=== PATIENT | female | born 1990 | race Hispanic/Latino ===

== ENCOUNTER 2018-02-08 19:41 | Emergency (ER) | payer BC, OTHER ==
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
== END 2018-02-08 22:47 | disposition home or self-care (01) ==
LOC: ER 19:41
DX: M54.2 Cervicalgia (principal); V49.49XA Driver injured in collision with other motor vehicles in traffic accident, initial encounter
CPT/HCPCS: 70450; 72125; 99284

== ENCOUNTER 2018-09-27 19:14 | Observation (INO) | payer OTHER, SELFPAY ==
[2018-09-27] MEDS ORDERED: CEFOXITIN SODIUM 1 GM/VIAL IVPB ONE (20:01)
[2018-09-27 20:04] VITALS: BMI 23.0
[2018-09-27] MEDS: NA CHLORIDE 0.9% 1,000 ML IV SCH (20:16)
[2018-09-27] MEDS ORDERED: CEFOXITIN/SWI 1gm 1 GM/10 ML SYR ONE (20:46)
[2018-09-27] MEDS ORDERED: Ringers Lactate 1,000 ML IV ONE (20:48)
[2018-09-27] MEDS ORDERED: FENTANYL CITR 100 MCG/2 ML ONE (20:50)
[2018-09-27] MEDS ORDERED: ROCURONIUM 50 MG/5 ML VIAL IV ONE (21:09)
[2018-09-27] MEDS ORDERED: PROPOFOL 200 MG/20 ML VIAL IV ONE (21:09)
[2018-09-27] MEDS ORDERED: MIDAZOLAM HCL 2 MG/2 ML INJ ONE (21:11)
[2018-09-27] MEDS ORDERED: LIDOCAINE 2% MPF 5 ML VIAL ONE (21:11)
[2018-09-27] MEDS ORDERED: KETOROLAC 30 MG/ML INJ ONE (21:57)
[2018-09-27] MEDS ORDERED: DEXAMETHASONE 10 MG/ML VIAL ONE (21:57)
[2018-09-27] MEDS ORDERED: NEOSTIGMINE 1 MG/ML -5 ML SYRINGE ONE (22:07)
[2018-09-27] MEDS ORDERED: GLYCOPYRROLATE 0.2 MG/ML SYR ONE (22:07)
--- NOTE | 2018-09-27 22:16 | P.BOP ---
Preoperative diagnosis: acute appendicitis Postoperative diagnosis: same Primary procedure: Laparoscopic appendectomy Estimated blood loss: <10cc Specimen: jo Findings: as above Anesthesia: General Complications: None Transferred to: Recovery Room Condition: Good
[2018-09-27] MEDS: HYDROMORPHONE HCL 1 MG/ML INJ ONE ×2 (22:50→22:56)
[2018-09-27 22:55] VITALS: O2SAT 97
[2018-09-28] MEDS: HYDROCODONE/APAP 7.5/325 MG TAB PO PRN ×3 (00:06→12:01)
[2018-09-28] MEDS: MORPHINE 2 MG/ML SYR IV PRN ×2 (02:07→09:16)
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
[2018-09-28] MEDS ORDERED: INFLUENZA VACCINE (for 3y+) 0.5 ML DOSE IMVAC ONE (08:00)
--- NOTE | 2018-09-28 08:41 | OP ---
Date of Procedure: 09/27/2018 Surgeon: Chad Bae MD Preoperative Diagnosis: Acute appendicitis. Postoperative Diagnosis: Acute appendicitis. Procedure: Laparoscopic appendectomy. Anesthesia: General plus local. Specimen: Appendix. Indications: This is the case of a 28-year-old patient with acute appendicitis. Fully explained the benefits, alternatives, and risks of laparoscopic, possible open appendectomy, which include but are not limited to infection, bleeding, damage to adjacent structures, anesthesia complication, CT, and even . She also understands this may not relieve any symptoms, she might need more than one ld gical intervention. She understood, signed a consent. Description Of Procedure: The patient was brought to the operating room, placed in supine position. Anesthesia was done without complication. Abdominal area was prepped and draped in usual sterile fa shion. Marcaine 0.5% was injected for local anesthetic, followed by sharp incision of the skin in th e infraumbilical region. Incision was carried down to fascia, which was opened under direct vision. Peritoneum was encountered, opened under direct vision. Vicryl #1 placed inside the fascia. Remigio trocar was carefully introduced. No bleeding was obtained. After that, I placed 2 more trocars, 5 mm each one of them, in the suprapubic and left lower quadrant area under direct visualization. Appe ndix was visualized, noticed inflammation of the appendix, retrocecal so carefully we created window in the base of the appendix which seems to be spared from the inflammation and transected that with a n Endo JERONIMO 45 mm 3.5, and the mesoappendix sequentially with the Endo-JERONIMO 45 mm 2.5. Further hemosta sis was obtained with the help of hemoclips. Appendix removed from abdominal cavity using an EndoCat ch through the umbilical incision. The area was inspected once again after irrigation and suction, n o bleeding, no bowel leak. At that moment, I proceeded to remove the trocars under direct vision, de flated pneumoperitoneum, closed the fascia with #1 Vicryl, irrigated subcutaneous tissue, closed that with 3-0 chromic and the skin with maurice. Sponge count and instrument counts were correct. The p atient tolerated the procedure well. The patient was sent to recovery in stable condition. MARILU/DELLA Voice ID: [id number] Report ID: [id number]
[2018-09-28] MEDS: NA CHLORIDE 0.9% 1,000 ML IV SCH (09:16)
[2018-09-28 13:41] VITALS: BP 109/72; TEMP 97.7
== END 2018-09-28 15:00 | disposition home or self-care (01) ==
LOC: 2ND 19:14
PROVIDERS: ADMIT Surgery; ATTEND Surgery
PROC: 0DTJ4ZZ Resection of Appendix, Percutaneous Endoscopic Approach (ICD-10-PCS; principal; 2018-09-27 21:00)
DX: K35.80 Unspecified acute appendicitis (principal); E03.9 Hypothyroidism, unspecified; J45.909 Unspecified asthma, uncomplicated
CPT/HCPCS: 88304; G0378; J0694; J1100; J1170; J2250; J2270; J2704; J2710; J3010; J7030

== ENCOUNTER 2018-10-05 17:32 | Emergency (ER) | payer OTHER ==
--- NOTE | 2018-10-05 18:31 | ER ---
Nurse's Notes [facility] Name: Corinne Haley Age: 28 yrs Sex: Female : 1990 Arrival Date: 10/05/2018 Time: 17:35 Bed 16 Private MD: Fernando Sultana E Diagnosis: Encounter for staple removal Presentation: 10/05 18:07 Presenting complaint: Patient states: Pt states that she missed her follow up ss appointment today with Dr. Bae to have her maurice removed s/p appy as she had to write a paper for school. Pt is crying and very anxious during triage because she is nervous about her schooling. Transition of care: patient was not received from another setting of care. Onset of symptoms is unknown. Risk Assessment: Do you want to hurt yourself or someone else? Patient reports no desire to harm self or others. Initial Sepsis Screen: Does the patient meet any 2 criteria? No. Patient's initial sepsis screen is negative. Does the patient have a suspected source of infection? No. Patient's initial sepsis screen is negative. Care prior to arrival: None. 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 - Social history:: Smoking status: Patient/guardian denies using tobacco. - Ebola Screening: : Patient denies exposure to infectious person Patient denies travel to an Ebola-affected area in the 21 days before illness onset. - Family history:: not pertinent. - Hospitalizations: : No recent hospitalization is reported. Screenin:20 Abuse screen: Denies threats or abuse. Denies injuries from another. Nutritional mg2 screening: No deficits noted. Tuberculosis screening: No symptoms or risk factors identified. Fall Risk None identified. Assessment: 18:17 General: Appears in no apparent distress. comfortable, Behavior is anxious, crying. mg2 Pain: Denies pain. Neuro: Level of Consciousness is awake, alert, obeys commands, Oriented to person, place, time, situation. Cardiovascular: Reports. Respiratory: Airway is patent Respiratory effort is even, unlabored, Respiratory pattern is regular, symmetrical. Respiratory: No deficits noted. GI: No deficits noted. : No deficits noted. EENT: No deficits noted. Derm: Skin is intact, is healthy with good turgor, Wound noted abdomen with maurice on. Musculoskeletal: No signs and/or symptoms reported regarding the musculoskeletal system. Vital Signs: 18:11 BP 123 / 95; Pulse 104; Resp 20; Temp 97.9(O); Pulse Ox 99% on R/A; Weight 65.77 kg; ss Height 5 ft. 6 in. (167.64 cm); Pain 0/10; 18:11 Body Mass Index 23.40 (65.77 kg, 167.64 cm) ED Course: 17:35 Patient arrived in ED. dl4 17:36 Fernando Sultana MD is Private Physician. dl4 18:09 Triage completed. ss 18:11 Arm band placed on right wrist. ss 18:12 Leonardo Neri, RN is Primary Nurse. mg2 18:12 Triston Osborn MD is Attending Physician. rn 18:35 Assist provider with pelvic exam: staple removal from the abdomen s/p lap ap, steri mg2 strips applied. 18:36 Patient has correct armband on for positive identification. mg2 18:37 Patient did not have IV access during this emergency room visit. mg2 Administered Medications: No medications were administered Outcome: 18:31 Discharge ordered by . rn 18:36 Discharged to home ambulatory. mg2 18:36 Condition: stable 18:36 Discharge instructions given to patient, Instructed on discharge instructions, follow up and referral plans. Demonstrated understanding of instructions, follow-up care, wound care. 18:40 Patient left the ED. mg2 Signatures: Triston Osborn MD MD rn Smirch, Shelby, RN RN Leonardo Neri RN RN mg2 Hans Aguilera dl4
--- NOTE | 2018-10-05 18:31 | EDPHYS ---
Physician Documentation [facility] Name: Corinne Haley Age: 28 yrs Sex: Female : 1990 Arrival Date: 10/05/2018 Time: 17:35 Bed 16 Private MD: Fernando Sultana E ED Physician Triston Osborn HPI: 10/05 18:25 This 28 yrs old Female presents to ER via Ambulatory with complaints of rn Anxiety, Staple Removal. 18:25 The patient has maurice on the abdomen. rn 18:25 Sutures/maurice progress: The patient has no c/o's. The wound is well-healing with no rn redness, swelling, discharge, or dehiscence reported. The patient has not experienced similar symptoms in the past. Reports 1 week s/p lap appy, had appt for staple removal today with Dr. Bae, missed appt because of school. No other complications.. 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 - Social history:: Smoking status: Patient/guardian denies using tobacco. - Ebola Screening: : Patient denies exposure to infectious person Patient denies travel to an Ebola-affected area in the 21 days before illness onset. - Family history:: not pertinent. - Hospitalizations: : No recent hospitalization is reported. ROS: 18:25 Skin: + surgical wounds with maurice rn Exam: 18:25 Constitutional: This is a well developed, well nourished patient who is awake, alert, rn appears anxious Skin: Well healed surgical wounds of abdomen Vital Signs: 18:11 BP 123 / 95; Pulse 104; Resp 20; Temp 97.9(O); Pulse Ox 99% on R/A; Weight 65.77 kg; ss Height 5 ft. 6 in. (167.64 cm); Pain 0/10; 18:11 Body Mass Index 23.40 (65.77 kg, 167.64 cm) ss Procedures: 18:25 Suture/Staple removal: Removed 7 maurice, from abdomen, site appears well healed, rn Patient tolerated well. MDM: 18:12 Patient medically screened. rn 18:25 Data reviewed: vital signs, nurses notes, and as a result, I will discharge patient. rn Counseling: I had a detailed discussion with the patient and/or guardian regarding: the historical points, exam findings, and any diagnostic results supporting the discharge/admit diagnosis, the need for outpatient follow up, to return to the emergency department if symptoms worsen or persist or if there are any questions or concerns that arise at home. Special discussion: I discussed with the patient/guardian in detail that at this point there is no indication for admission to the hospital. It is understood, however, that if the symptoms persist or worsen the patient needs to return immediately for re-evaluation. Administered Medications: No medications were administered Disposition: 10/05/18 18:31 Discharged to Home. Impression: Encounter for staple removal. - Condition is Stable. - Discharge Instructions: Stitches, [place], or Adhesive Wound Closure. - Medication Reconciliation Form, Thank You Letter, Antibiotic Education, Prescription Opioid Use form. - Follow up: Private Physician; When: As needed; Reason: Recheck today's complaints, Re-evaluation by your physician. - Problem is new. - Symptoms have improved. Signatures: Triston Osborn MD MD rn Smirch, Shelby, RN RN Leonardo Neri RN RN mg2 Corrections: (The following items were deleted from the chart) 18:40 18:31 10/05/2018 18:31 Discharged to Home. Impression: Encounter for staple removal. mg2 Condition is Stable. Forms are Medication Reconciliation Form, Thank You Letter, Antibiotic Education, Prescription Opioid Use. Follow up: Private Physician; When: As needed; Reason: Recheck today's complaints, Re-evaluation by your physician. Problem is new. Symptoms have improved. rn
[2018-10-05 18:48] VITALS: BP 123/95; TEMP 97.9; O2SAT 99
== END 2018-10-05 18:40 | disposition home or self-care (01) ==
LOC: ER 17:32
DX: Z48.02 Encounter for removal of sutures (principal); E03.9 Hypothyroidism, unspecified; F41.9 Anxiety disorder, unspecified; J45.909 Unspecified asthma, uncomplicated
CPT/HCPCS: 99283

== ENCOUNTER → 2023-10-19 | Emergency (ER) | payer OTHER, SELFPAY ==
[~2023-10-19] MED LIST: NA CHLORIDE 0.9% 1,000 ML ONE; ONDANSETRON 4 MG/2 ML VIAL ONE; cloNIDine HCL 0.1 MG TAB ONE
[2023-10-20 01:02] LABS: Absolute Lymphocytes (CBC) 0.9 K/uL (0.7-4.9); Hematocrit 41.9 % (36.0-45.0); Lymphocytes % 9.6 % (15.3-44.8); MCV 87.8 fL (80-100); MPV 7.8 fL (7.6-11.3); Platelets 268 thou/uL (152-406); RBC Red Blood Cell Count 4.77 M/uL (3.86-4.86)
[2023-10-20 01:05] LABS: Specific Gravity 1.022 (1.005-1.030)
[2023-10-20 01:06] LABS: Specific Gravity 1.022 (1.005-1.030); Urine Bacteria 20-50 /HPF (<20); Urine Bilirubin NEGATIVE (Negative); Urine Blood 1+ (Negative); Urine Clarity Extremely Turbid (Clear); Urine Color Yellow (Yellow); Urine Glucose NEGATIVE (Negative); Urine Mucus 2+ /HPF (None Seen); Urine Protein 1+ (Negative); Urine RBC <5 /HPF (None Seen); Urine Urobilinogen Normal (Normal); Urine pH 5.5 (5.0-7.0)
[2023-10-20 01:30] LABS: ALT/SGPT 21 U/L (13-56); AST/SGOT 15 U/L (15-37); Albumin 3.6 g/dL (3.4-5.0); Alkaline Phosphatase 56 U/L (45-117); BUN Blood Urea Nitrogen 11 mg/dL (7-18); Bicarbonate 27 mEq/L (21-32); Bilirubin Total 0.3 mg/dL (0.2-1.0); Glomerular Filtration Rate 90 ml/min (=/>90); Glucose Level 101 mg/dL (74-106); Potassium 3.1 mEq/L (3.5-5.1); Protein, Total 7.1 g/dL (6.4-8.2); Sodium Level 137 mEq/L (136-145)
[2023-10-20 01:32] LABS: Bilirubin Direct < 0.1 mg/dL (0-0.2); Bilirubin Indirect, Calculated ND mg/dL (0.2-0.8)
[2023-10-20 01:45] LABS: Barbiturates NEGATIVE (NEGATIVE); Benzodiazepines POSITIVE (NEGATIVE); Cocaine POSITIVE (NEGATIVE); METHAMPHETAM POSITIVE (NEGATIVE); Methadone NEGATIVE (NEGATIVE); Opiates NEGATIVE (NEGATIVE); Phencyclidine NEGATIVE (NEGATIVE); THC Cannibis POSITIVE (NEGATIVE)
--- NOTE | 2023-10-20 01:46 | ER ---
Nurse's Notes [facility] Name: Corinne Haley Age: 33 yrs Sex: Female : 1990 Arrival Date: 10/19/2023 Time: 23:27 Bed 13 Private MD: Diagnosis: Unintentional overdose, acute opiate overdose, suspected fentanyl overdose;Polysubstance abuse Presentation: 10/19 23:31 Chief complaint: EMS states: PT WAS FOUND AT [facility] BATHROOM UNCONSCIOUS AND WHEN PD nw1 ARRIVED, PT WAS GIVEN 4MG OF NARCAN SPRAY AND AWAKENED. PT NOTED ALERT AND ORIENTED AT THIS TIME. 23:31 Coronavirus screen: Vaccine status: Patient reports receiving the 1st dose of the Covid nw1 vaccine. Ebola Screen: Patient negative for fever greater than or equal to 101.5 degrees Fahrenheit, and additional compatible Ebola Virus Disease symptoms Patient denies exposure to infectious person. Patient denies travel to an Ebola-affected area in the 21 days before illness onset. No symptoms or risks identified at this time. Initial Sepsis Screen: Does the patient meet any 2 criteria? No. Patient's initial sepsis screen is negative. Does the patient have a suspected source of infection? No. Patient's initial sepsis screen is negative. Risk Assessment: Do you want to hurt yourself or someone else? Patient reports no desire to harm self or others. Onset of symptoms was October 19, 2023. 23:31 Method Of Arrival: EMS: [facility] nw1 23:31 Acuity: MELINA 2 nw1 Triage Assessment: 23:52 General: Appears comfortable, Behavior is cooperative, appropriate for age, anxious. nw1 Pain: Denies pain. Historical: - Allergies: 23:52 No Known Allergies; nw1 - Home Meds: 23:52 Adderall XR Oral [Active]; Advair Diskus Inhl [Active]; Albuterol Inhl [Active]; nw1 Clonazepam Oral [Active]; levothyroxine oral [Active]; Lyrica Oral [Active]; - PMHx: 23:52 Anxiety; Asthma; Hypothyroidism; nw1 - Immunization history:: Adult Immunizations up to date, Client reports receiving the Javid \\T\\ Javid single-dose vaccine. - Social history:: Smoking status: Reported history of juuling and/or vaping. Patient uses street drugs, "SMOKES OXYCODONE". - Family history:: not pertinent. Screenin:55 [facility] ED Fall Risk Assessment (Adult) History of falling in the last 3 months, nw1 including since admission No falls in past 3 months (0 pts). [facility] ED Fall Risk Assessment (Adult) Confusion or Disorientation No (0 pts) Intoxicated or Sedated Yes (3 pts) Impaired Gait No (0 pts) Mobility Assist Device Used No (0 pt) Altered Elimination No (0 pt) Score/Fall Risk Level 0 - 2 = Low Risk Oriented to surroundings, Maintained a safe environment, Educated pt \\T\\ family on fall prevention, incl call for assistance when getting out of bed, Assessed \\T\\ reinforced patient's understanding of fall precautions, Provided non-skid footwear. Abuse screen: Denies threats or abuse. Nutritional screening: No deficits noted. Tuberculosis screening: No symptoms or risk factors identified. Assessment: 23:55 Reassessment: SEE TRIAGE ASSESSMENT. nw1 Vital Signs: 23:31 BP 121 / 97; Pulse 115; Resp 20; Temp 98.3(O); Pulse Ox 100% on R/A; Weight 68.04 kg; nw1 Height 5 ft. 5 in. ; 23:31 Body Mass Index 24.96 (68.04 kg, 165.1 cm) nw1 ED Course: 23:43 Patient arrived in ED. as6 23:48 Yuko May, RN is Primary Nurse. nw1 23:52 Triage completed. nw1 23:52 Arm band placed on right wrist. nw1 23:55 Patient has correct armband on for positive identification. Placed in gown. Bed in low nw1 position. Call light in reach. Side rails up X2. Adult w/ patient. Provided Education on: POC. 23:55 No provider procedures requiring assistance completed. nw1 23:56 Casper Marie MD is Attending Physician. sp4 10/20 00:43 Urine Drug Screen Sent. 00:43 Urinalysis w/ reflexes Sent. nw 00:43 Salicylate Sent. nw 00:43 Test, Urine Sent. 00:43 Hepatic Function Sent. 00:43 ETOH Level Sent. 00:43 CBC with Diff Sent. 00:43 Basic Metabolic Panel Sent. nw 00:43 Acetaminophen Sent. nw1 01:49 IV discontinued, intact, bleeding controlled, No redness/swelling at site. Pressure nw1 dressing applied. Administered Medications: 00:44 Drug: NS 0.9% IV 1000 ml IV at 1 bolus Per protocol; 1000 mL bolus Route: IV; Rate: 1 nw1 bolus; Site: right forearm; 00:44 Drug: Ondansetron IVP 4 mg IVP once; over 2 minutes Route: IVP; Site: right forearm; nw1 01:36 Not Given (Patient Refused): clonidine0.2 mg PO once sp4 Medication: 10/19 23:55 VIS not applicable for this client. nw1 Outcome: 10/20 01:49 AMA AMA form signed nw1 Condition: stable Instructed on AMA 01:49 Patient left the ED. nw1 Signatures: Luis Alberto Mojica, RN RN as6 Casper Marie MD MD sp4 Yuko May RN RN nw1
--- NOTE | 2023-10-20 01:47 | EDPHYS ---
Physician Documentation [facility] Name: Corinne Haley Age: 33 yrs Sex: Female : 1990 Arrival Date: 10/19/2023 Time: 23:27 Bed 13 Private MD: ED Physician Casper Marie HPI: 10/19 23:56 This 33 yrs old Female presents to ER via EMS with complaints of Overdose. sp4 23:56 Patient was found [place] the [employer] in the bathroom unresponsive. Medics were called sp4 and administered 2 mg intranasal Narcan. Which brought about awakening. Patient states she has used off the street Percocet tablet. Patient brought in by EMS. EMS report patient has had stable vital signs.. Historical: - Allergies: 23:52 No Known Allergies; nw1 - Home Meds: 23:52 Adderall XR Oral [Active]; Advair Diskus Inhl [Active]; Albuterol Inhl [Active]; nw1 Clonazepam Oral [Active]; levothyroxine oral [Active]; Lyrica Oral [Active]; - PMHx: 23:52 Anxiety; Asthma; Hypothyroidism; nw1 - Immunization history:: Adult Immunizations up to date, Client reports receiving the Javid \\T\\ Javid single-dose vaccine. - Social history:: Smoking status: Reported history of juuling and/or vaping. Patient uses street drugs, "SMOKES OXYCODONE". - Family history:: not pertinent. ROS: 23:56 Constitutional: Negative for fever, chills, and weight loss, positive for unintentional sp4 overdose 23:56 All other systems are negative, Exam: 23:56 Constitutional: This is a well developed, well nourished patient who is awake, alert, sp4 and in no acute distress. Head/Face: Normocephalic, atraumatic. Eyes: Pupils equal round and reactive to light, extra-ocular motions intact. Lids and lashes normal. Conjunctiva and sclera are not injected. Cornea within normal limits. Periorbital areas with no swelling, redness, or edema. ENT: Nares patent. No nasal discharge, no septal abnormalities noted. Tympanic membranes are normal and external auditory canals are clear. Oropharynx with no redness, swelling, or masses, exudates, or evidence of obstruction, uvula midline. Mucous membranes moist. Neck: Trachea midline, no thyromegaly or masses palpated, and no cervical lymphadenopathy. Supple, full range of motion without nuchal rigidity, or vertebral point tenderness. Chest/axilla: Normal chest wall appearance and motion. Nontender with no deformity. No lesions are appreciated. Cardiovascular: Regular rate and rhythm with a normal S1 and S2. No gallops, murmurs, or rubs. Normal PMI, no JVD. No pulse deficits. Respiratory: Lungs have equal breath sounds bilaterally, clear to auscultation and percussion. No rales, rhonchi or wheezes noted. No increased work of breathing, no retractions or nasal flaring. Abdomen/GI: Soft, non-tender, with normal bowel sounds. No distension or tympany. No guarding or rebound. No evidence of tenderness throughout. Back: No spinal tenderness. No costovertebral tenderness. Skin: Warm, dry with normal turgor. Normal color with no rashes, no lesions, and no evidence of cellulitis. MS/ Extremity: Pulses equal, no cyanosis. Neurovascular intact. Full, normal range of motion. Neuro: Awake and alert, GCS 15, oriented to person, place, time, and situation. Cranial nerves II-XII grossly intact. Motor strength 5/5 in all extremities. Sensory grossly intact. Psych: Awake, alert, with orientation to person, place and time. Behavior, mood, and affect are within normal limits 10/20 04:58 ECG was reviewed by the Attending Physician. EKG at 0116 normal sinus rhythm at the sp4 rate of 92, normal EKG Vital Signs: 10/19 23:31 BP 121 / 97; Pulse 115; Resp 20; Temp 98.3(O); Pulse Ox 100% on R/A; Weight 68.04 kg; nw1 Height 5 ft. 5 in. ; 23:31 Body Mass Index 24.96 (68.04 kg, 165.1 cm) nw1 MDM: 10/20 00:04 Patient medically screened. sp4 01:43 Differential diagnosis: Ingestion/exposure to Fentanyl, Opiates over medication, sp4 hypoglycemia. Data reviewed: vital signs, nurses notes, EMS record, lab test result(s). Consideration of Admission/Observation Escalation of care including admission/observation considered. ED course: Patient was strongly advised to stay in emergency room for at least 4 hours for monitoring. Patient is hemodynamically stable. Patient decided to sign out AGAINST MEDICAL ADVICE at 0 144. . 01:44 ED course: Patient was monitored for total of 2 hours 17 minutes and remained sp4 hemodynamically stable. It was Explained to the patient at her departure that she should stay for at least 4 hours to allow fentanyl to be metabolized. Patient understands that it is too risky for her to live but still desires to leave AGAINST MEDICAL ADVICE. We do not have any grounds to hold patient against her will. . 01:47 ED course: Patient tested positive for benzodiazepines, cocaine, methamphetamine, THC. sp4 Results consistent with polysubstance abuse. 10/20 00:15 Order name: Acetaminophen; Complete Time: 10/20 00:15 Order name: Basic Metabolic Panel; Complete Time: 10/20 00:15 Order name: CBC with Diff; Complete Time: 4 10/20 00:15 Order name: ETOH Level; Complete Time: 10/20 00:15 Order name: Hepatic Function; Complete Time: 10/20 00:15 Order name: Test, Urine; Complete Time: 10/20 00:15 Order name: Salicylate; Complete Time: 10/20 00:15 Order name: Urinalysis w/ reflexes; Complete Time: 10/20 00:15 Order name: Urine Drug Screen; Complete Time: 4 10/20 01:10 Order name: Urine Culture [facility] 10/20 00:15 Order name: EKG; Complete Time: 00:16 10/20 00:15 Order name: EKG - Nurse/Tech; Complete Time: 01:49 10/20 00:15 Order name: IV Saline Lock; Complete Time: 00:10/20 00:15 Order name: Labs collected and sent; Complete Time: :4 10/20 00:15 Order name: Suicide Screening ([place]); Complete Time: 00: EC:58 Rate is 92 beats/min. Rhythm is regular, Normal Sinus Rhythm. QRS [place] is Normal. ID sp4 interval is normal. QRS interval is normal. QT interval is normal. No Q waves. T waves are Normal. No ST changes noted. Clinical impression: Normal ECG. Interpreted by me. Reviewed by me. Administered Medications: 00:44 Drug: NS 0.9% IV 1000 ml IV at 1 bolus Per protocol; 1000 mL bolus Route: IV; Rate: 1 nw1 bolus; Site: right forearm; 00:44 Drug: Ondansetron IVP 4 mg IVP once; over 2 minutes Route: IVP; Site: right forearm; nw1 01:36 Not Given (Patient Refused): clonidine0.2 mg PO once sp4 Disposition Summary: 10/20/23 01:46 Left Against Medical Advice Notes: Location: Home sp4 Problem: new sp4 Symptoms: have improved sp4 Condition: Stable sp4 Diagnosis - Unintentional overdose, acute opiate overdose, suspected fentanyl overdose sp4 - Polysubstance abuse sp4 Followup: sp4 - With: Private Physician - When: 1 - 2 days - Reason: Recheck today's complaints Discharge Instructions: - Discharge Summary Sheet sp4 - Opioid Overdose sp4 Signatures: Dispatcher [employer] Casper Cifuentes MD MD sp4 Yuko May RN RN nw1
[2023-10-20 03:42] VITALS: BP 121/97; TEMP 98.3; O2SAT 100
--- NOTE | 2023-10-22 13:28 | EKG ---
Test Date: 2023-10-20 Test Time: 01:16:22 Dietary Aide: ABRIL Leigh MEASUREMENT RESULTS: Intervals: Rate: 92 WI: 136 QRSD: 84 QT: 364 QTc: 450 [place]: P: 80 WI: 136 QRS: 70 T: 60 INTERPRETIVE STATEMENTS: Normal sinus rhythm with sinus arrhythmia Normal ECG Compared to ECG 09/06/2009 08:13:24 No significant changes Electronically Signed On 10-22-23 13:23:01 SOFTWARE DESIGN ANALYST by Teto Swain
== END ==
LOC: ER 23:27
DX: R41.82 Altered mental status, unspecified (principal); T40.601A Poisoning by unspecified narcotics, accidental (unintentional), initial encounter; F19.10 Other psychoactive substance abuse, uncomplicated
CPT/HCPCS: 93005; 96374; 99284

== ENCOUNTER 2024-02-12 17:01 | Emergency (ER) | payer OTHER ==
--- NOTE | 2024-02-12 17:29 | ER ---
Nurse's Notes [facility] Name: Corinne Haley Age: 33 yrs Sex: Female : 1990 Arrival Date: 02/12/2024 Time: 17:01 Bed DX1 Private MD: Diagnosis: Superficial peroneal nerve syndrome Presentation: 02/11 17:10 Chief complaint: Patient states: Numbness to R leg for 4-5 days. No trauma or falls. No ll1 fever or pain. Coronavirus screen: Client denies travel out of the [place] in the last 14 days. At this time, the client does not indicate any symptoms associated with coronavirus-19. Ebola Screen: Patient denies travel to an Ebola-affected area in the 21 days before illness onset. Initial Sepsis Screen: Does the patient meet any 2 criteria? No. Patient's initial sepsis screen is negative. Does the patient have a suspected source of infection? No. Patient's initial sepsis screen is negative. Risk Assessment: Do you want to hurt yourself or someone else? Patient reports no desire to harm self or others. Onset of symptoms was February 07, 2024. 17:10 Method Of Arrival: Ambulatory ll1 17:10 Acuity: MELINA 3 ll1 [employer]: 17:51 LMP N/A - control method, Not me1 Historical: - Allergies: 17:11 No Known Allergies; ll1 - PMHx: 17:11 Anxiety; Asthma; Hypothyroidism; ll1 - PSHx: 17:11 Appendectomy; ll1 - Immunization history:: Adult Immunizations up to date. - Infectious Disease History:: Denies. - Social history:: Smoking status: Reported history of juuling and/or vaping. Screenin:10 [facility] ED Fall Risk Assessment (Adult) History of falling in the last 3 months, me1 including since admission No falls in past 3 months (0 pts) Confusion or Disorientation No (0 pts) Intoxicated or Sedated No (0 pts) Impaired Gait No (0 pts) Mobility Assist Device Used No (0 pt) Altered Elimination No (0 pt) Score/Fall Risk Level 0 - 2 = Low Risk Maintained a safe environment, Provided non-skid footwear, Hourly rounding (assess needs \T\ fall precautionary measures) done. Abuse screen: Denies threats or abuse. Nutritional screening: No deficits noted. Tuberculosis screening: No symptoms or risk factors identified. Assessment: 17:10 General: Appears comfortable, well groomed, well developed, well nourished, Behavior is me1 calm, cooperative, appropriate for age, Reports numbness to anterior aspect of RLL for about 5 days. Pain: Denies pain. Neuro: Level of Consciousness is awake, alert, obeys commands, Oriented to person, place, time, situation, Appropriate for age. Cardiovascular: Capillary refill < 3 seconds Patient's skin is warm and dry. Respiratory: Airway is patent Respiratory effort is even, unlabored, Respiratory pattern is regular, symmetrical. GI: No signs and/or symptoms were reported involving the gastrointestinal system. : No signs and/or symptoms were reported regarding the genitourinary system. EENT: No signs and/or symptoms were reported regarding the EENT system. Derm: Skin is intact, is healthy with good turgor, Skin is pink, warm \T\ dry. Musculoskeletal: Reports numbness in right leg since 5 days ago.. Vital Signs: 17:10 BP 150 / 91; Pulse 88; Resp 16; Temp 97.9; Pulse Ox 99% ; Weight 65.77 kg; Height 5 ft. ll1 6 in. ; Pain 0/10; 17:50 BP 149 / 87; Pulse 90; Resp 16; Temp 98.4(O); Pulse Ox 99% on R/A; me1 17:10 Body Mass Index 23.40 (65.77 kg, 167.64 cm) ll1 17:10 Pain Scale: Adult ll1 ED Course: 17:06 Patient arrived in ED. mr 17:10 Patient has correct armband on for positive identification. Provided Education on: POC. me1 Verbalized understanding. . 17:10 No provider procedures requiring assistance completed. Patient did not have IV access me1 during this emergency room visit. 17:11 Triage completed. ll1 17:14 Lee Sosa MD is Attending Physician. sp3 17:20 Teresa Morris, DEL is Primary Nurse. me1 17:28 Poncho Anderson MD is Referral Physician. sp3 17:51 Arm band placed on Patient placed in an internal wait recliner. me1 Administered Medications: No medications were administered Medication: 17:10 VIS not applicable for this client. me1 Outcome: 17:28 Discharge ordered by . sp3 17:51 Discharged to home ambulatory, me1 17:51 Condition: stable 17:51 Discharge instructions given to patient, Instructed on discharge instructions, follow up and referral plans. medication usage, Demonstrated understanding of instructions, follow-up care, medications, Prescriptions given X 1, 17:51 Patient left the ED. me1 Signatures: Yodit Alanis, Reg Reg mr Chrissy Lakhani, RN RN ll1 Lee Sosa MD MD sp3 Teresa Morris RN RN me1 Corrections: (The following items were deleted from the chart) 17:12 17:10 BP 150 / 91; Pulse 88bpm; Resp 99bpm; Temp 97.9F; 65.77 kg; Height 5 ft. 6 in.; ll1 BMI: 23.4; Pain 0/10, Adult; ll1
--- NOTE | 2024-02-12 17:29 | EDPHYS ---
Physician Documentation [facility] Name: Corinne Haley Age: 33 yrs Sex: Female : 1990 Arrival Date: 02/12/2024 Time: 17:01 Bed DX1 Private MD: ED Physician Lee Sosa HPI: 02/11 17:25 This 33 yrs old Female presents to ER via Ambulatory with complaints of Leg sp3 numbness. 17:25 33-year-old female with history of asthma, anxiety, ADD now presents to the ED with sp3 chief complaint right anterior lower leg numbness and paresthesia for approximately 5 days. 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 Numbness starts just below the tibial tuberosity and extends down to the top of the foot on the anterior surface of the leg. She describes it as a numbness and tingling. Distal to that on the foot and posteriorly there are no symptoms. Patient denies any trauma, other neurological complaints, back pain, headache, neck pain, inability to walk, or any other signs or symptoms on ROS at this time.. [employer]: 17:51 LMP N/A - control method, Not me1 Historical: - Allergies: 17:11 No Known Allergies; ll1 - PMHx: 17:11 Anxiety; Asthma; Hypothyroidism; ll1 - PSHx: 17:11 Appendectomy; ll1 - Immunization history:: Adult Immunizations up to date. - Infectious Disease History:: Denies. - Social history:: Smoking status: Reported history of juuling and/or vaping. ROS: 17:26 Constitutional: Negative for fever, chills, and weight loss, Eyes: Negative for injury, sp3 pain, redness, and discharge, ENT: Negative for injury, pain, and discharge, Neck: Negative for injury, pain, and swelling, Cardiovascular: Negative for chest pain, palpitations, and edema, Respiratory: Negative for shortness of breath, cough, wheezing, and pleuritic chest pain, Abdomen/GI: Negative for abdominal pain, nausea, vomiting, diarrhea, and constipation, Back: Negative for injury and pain, Skin: Negative for injury, rash, and discoloration, Psych: Negative for depression, anxiety, suicide ideation, homicidal ideation, and hallucinations, Allergy/Immunology: Negative for hives, rash, and allergies, Endocrine: Negative for neck swelling, polydipsia, polyuria, polyphagia, and marked weight changes, Hematologic/Lymphatic: Negative for swollen nodes, abnormal bleeding, and unusual bruising, 17:26 All other systems are negative, Exam: 17:26 Constitutional: This is a well developed, well nourished patient who is awake, alert, sp3 and in no acute distress. Head/Face: Normocephalic, atraumatic. Eyes: Pupils equal round and reactive to light, extra-ocular motions intact. Lids and lashes normal. Conjunctiva and sclera are non-icteric and not injected. Cornea within normal limits. Periorbital areas with no swelling, redness, or edema. Neck: Trachea midline, no thyromegaly or masses palpated, and no cervical lymphadenopathy. Supple, full range of motion without nuchal rigidity, or vertebral point tenderness. No Meningismus. Chest/axilla: Normal chest wall appearance and motion. Nontender with no deformity. No lesions are appreciated. Cardiovascular: Regular rate and rhythm with a normal S1 and S2. No gallops, murmurs, or rubs. Normal PMI, no JVD. No pulse deficits. Respiratory: Lungs have equal breath sounds bilaterally, clear to auscultation and percussion. No rales, rhonchi or wheezes noted. No increased work of breathing, no retractions or nasal flaring. Abdomen/GI: Soft, non-tender, with normal bowel sounds. No distension or tympany. No guarding or rebound. No evidence of tenderness throughout. Back: No spinal tenderness. No costovertebral tenderness. Full range of motion. Skin: Warm, dry with normal turgor. Normal color with no rashes, no lesions, and no evidence of cellulitis. Psych: Awake, alert, with orientation to person, place and time. Behavior, mood, and affect are within normal limits. 17:26 Neuro: Neurological exam normal except for subjective to point discrimination decreased on the superficial peroneal nerve distribution on the right anterior leg., Vital Signs: 17:10 BP 150 / 91; Pulse 88; Resp 16; Temp 97.9; Pulse Ox 99% ; Weight 65.77 kg; Height 5 ft. ll1 6 in. ; Pain 0/10; 17:50 BP 149 / 87; Pulse 90; Resp 16; Temp 98.4(O); Pulse Ox 99% on R/A; me1 17:10 Body Mass Index 23.40 (65.77 kg, 167.64 cm) ll1 17:10 Pain Scale: Adult ll1 MDM: 17:24 Patient medically screened. sp3 17:26 Data reviewed: vital signs, nurses notes. 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 I am not highly suspicious for bony abnormality including fracture, spinal cord pathology, or any other critical neurological process at this time. Will recommend NSAIDs, ice, decreased activity and follow-up with orthopedics. Will also educate patient on the syndrome and potential surgical options.. Administered Medications: No medications were administered Disposition Summary: 02/12/24 17:28 Discharge Ordered Notes: Location: Home sp3 Condition: Stable sp3 Diagnosis - Superficial peroneal nerve syndrome sp3 Followup: sp3 - With: Private Physician - When: Upon discharge from the Emergency Department - Reason: Continuance of care Followup: sp3 - With: Poncho Anderson MD - When: Upon discharge from the Emergency Department - Reason: Continuance of care Discharge Instructions: - Discharge Summary Sheet sp3 - Superficial Peroneal Nerve Entrapment Rehab-SportsMed sp3 - Superficial Peroneal Nerve Entrapment sp3 Forms: - Medication Reconciliation Form sp3 - Thank You Letter sp3 - Antibiotic Education sp3 - Prescription Opioid Use sp3 - Patient Portal Instructions sp3 - Leadership Thank You Letter sp3 - Work release form me1 Prescriptions: - Diclofenac Sodium 75 mg Oral Tablet Sustained Release - take 1 tablet ORAL route 2 times per day; 30 tablet; Refills: 0, Product sp3 Selection Permitted Signatures: Chrissy Lakhani, RN RN ll1 Lee Sosa MD MD sp3
[2024-02-12 18:22] VITALS: BP 149/87; TEMP 98.4; O2SAT 99
== END 2024-02-12 17:51 | disposition home or self-care (01) ==
LOC: ER 17:01
DX: G57.31 Lesion of lateral popliteal nerve, right lower limb (principal)
CPT/HCPCS: 99283

== ENCOUNTER 2025-06-18 08:20 | Emergency (ER) | payer OTHER ==
[2025-06-18] MEDS ORDERED: KETOROLAC 30 MG/ML INJ ONE (08:56)
[2025-06-18] MEDS ORDERED: ONDANSETRON 4 MG/2 ML VIAL ONE (08:56)
[2025-06-18] MEDS ORDERED: DIPHENHYDRAMINE 50 MG/ML VIAL ONE (08:56)
[2025-06-18] MEDS ORDERED: MORPHINE 4 MG/ML SYR ONE (08:57)
[2025-06-18] MEDS ORDERED: FAMOTIDINE 20 MG/2 ML VIAL IV ONE (08:57)
--- NOTE | 2025-06-18 09:25 | ER ---
Nurse's Notes [facility] Name: Corinne Haley Age: 35 yrs Sex: Female : 1990 Arrival Date: 06/18/2025 Time: 08:20 Bed 18 Private MD: Diagnosis: Rash and other nonspecific skin eruption Presentation: 06/18 08:37 Chief complaint: Patient states: tried new skincare last night, woke up this morning to ph swollen face, redness, and c/o face burning and itchy eyes. Coronavirus screen: At this time, the client does not indicate any symptoms associated with coronavirus-19. Ebola Screen: No symptoms or risks identified at this time. Onset: The symptoms/episode began/occurred this morning. Anaphylaxis evaluation, no signs or symptoms of anaphylaxis were noted. Initial Sepsis Screen: Does the patient meet any 2 criteria? No. Patient's initial sepsis screen is negative. Does the patient have a suspected source of infection? No. Patient's initial sepsis screen is negative. Risk Assessment: Do you want to hurt yourself or someone else? Patient reports no desire to harm self or others. Onset of symptoms was June 18, 2025. 08:37 Method Of Arrival: Ambulatory ph 08:37 Acuity: MELINA 4 ph Triage Assessment: 08:41 General: Appears in no apparent distress. uncomfortable, Behavior is cooperative, ph anxious. Pain: Complains of pain in face Pain currently is 6 out of 10 on a pain scale. EENT: No signs and/or symptoms were reported regarding the EENT system. Neuro: Level of Consciousness is awake, alert, obeys commands, Oriented to person, place, time, situation, Appropriate for age. Cardiovascular: Patient's skin is warm and dry. Respiratory: Airway is patent Respiratory effort is even, unlabored. GI: No signs and/or symptoms were reported involving the gastrointestinal system. : No signs and/or symptoms were reported regarding the genitourinary system. Derm: Skin is intact, Skin is red, Reports increased burning, itching, pain that is 6 out of 10 on a pain scale. Musculoskeletal: Circulation, motion, and sensation intact. Range of motion: intact in all extremities. Historical: - PMHx: 08:41 Anxiety; Asthma; Hypothyroidism; ph - PSHx: 08:41 Appendectomy; ph - Immunization history:: Adult Immunizations unknown. - Infectious Disease History:: Denies. - Social history:: Smoking status: unknown. Screenin:45 [facility] ED Fall Risk Assessment (Adult) History of falling in the last 3 months, ph including since admission No falls in past 3 months (0 pts) Confusion or Disorientation No (0 pts) Intoxicated or Sedated No (0 pts) Impaired Gait No (0 pts) Mobility Assist Device Used No (0 pt) Altered Elimination No (0 pt) Score/Fall Risk Level 0 - 2 = Low Risk Oriented to surroundings, Maintained a safe environment, Educated pt \T\ family on fall prevention, incl call for assistance when getting out of bed. Abuse screen: Denies threats or abuse. Denies injuries from another. 08:45 Nutritional screening: No deficits noted. Tuberculosis screening: No symptoms or risk ph factors identified. Assessment: 08:44 General: see triage assessment . ph 08:45 Respiratory: Airway is patent Respiratory effort is even, unlabored, Respiratory ph pattern is regular, symmetrical. 09:35 Reassessment: Patient appears in no apparent distress at this time. Patient and/or ph family updated on plan of care and expected duration. Pain level reassessed. Patient is alert, oriented x 3, equal unlabored respirations, skin warm/dry/pink. Patient states feeling better. Patient states symptoms have improved. Pain: Complains of pain in face Pain currently is 2 out of 10 on a pain scale. Vital Signs: 08:37 BP 133 / 76; Pulse 98; Resp 18; Pulse Ox 97% on R/A; Pain 6/10; ph 09:34 BP 119 / 71; Pulse 86; Resp 18; Pulse Ox 100% ; Pain 2/10; ph 08:37 Pain Scale: Adult ph 09:34 Pain Scale: Adult ph ED Course: 08:25 Patient arrived in ED. cj3 08:25 Vito Earl FNP-C is PHCP. dr5 08:25 Triston Osborn MD is Attending Physician. dr5 08:37 Barbara Gonzalez RN is Primary Nurse. ph 08:41 Triage completed. ph 08:41 Arm band placed on. ph 08:45 Patient has correct armband on for positive identification. Bed in low position. Call ph light in reach. Provided Education on: meds, labs, call light use . 08:45 No provider procedures requiring assistance completed. Inserted saline lock: 20 gauge ph in right antecubital area, using aseptic technique. Blood collected. Flushed with 10 mL NS. 09:51 IV discontinued, intact, bleeding controlled, No redness/swelling at site. Pressure ph dressing applied. Administered Medications: 09:18 Drug: Dexamethasone IVP 10 mg IVP once; (not to exceed 40 mg) Route: IVP; Site: right ph antecubital; 09:48 Follow up: Response: No adverse reaction; Pain is decreased ph 09:18 Drug: Famotidine IVP 20 mg IVP once; dilute with 10 mL 0.9% NaCl; give over 2 minutes ph Route: IVP; Site: right antecubital; 09:47 Follow up: Response: No adverse reaction; Pain is decreased; RASS: Alert and Calm (0) ph 09:18 Drug: morphine IVP or IV 4 mg IVP once over 4 mins Route: IVP; Infused Over: 4 mins; ph Site: right antecubital; 09:47 Follow up: Response: No adverse reaction; Pain is decreased; RASS: Alert and Calm (0) ph 09:18 Drug: Ondansetron IVP 4 mg IVP once; over 2 minutes Route: IVP; Site: right antecubital;ph 09:47 Follow up: Response: No adverse reaction ph 09:19 Drug: Ketorolac IVP 15 mg IVP once Route: IVP; Site: right antecubital; ph 09:48 Follow up: Response: No adverse reaction; Pain is decreased ph 09:19 Drug: diphenhydrAMINE IVP 25 mg IVP once Route: IVP; Site: right antecubital; ph 09:48 Follow up: Response: No adverse reaction; Pain is decreased ph Medication: 09:50 VIS not applicable for this client. ph Outcome: 09:24 Discharge ordered by MD. dr5 09:50 Discharged to home with significant other, ph 09:50 Condition: stable 09:50 Discharge instructions given to patient, Instructed on discharge instructions, follow up and referral plans. medication usage, Demonstrated understanding of instructions, follow-up care, medications, Prescriptions given X 5 09:53 Patient left the ED. ph Signatures: Barbara Gonzalez RN RN ph Vito Earl, DUMPCART DRIVER-C DUMPCART DRIVER-Cdr5 Marga Hua cj3 Corrections: (The following items were deleted from the chart) 09:46 09:44 General: see triage assessment . ph ph
--- NOTE | 2025-06-18 09:25 | EDPHYS ---
Physician Documentation [facility] Name: Corinne Haley Age: 35 yrs Sex: Female : 1990 Arrival Date: 06/18/2025 Time: 08:20 Bed 18 Private MD: ED Physician Triston Osborn HPI: 06/18 08:48 This 35 yrs old Female presents to ER via Ambulatory with complaints of dr5 Allergic Reaction. 08:48 The patient presents with rash, of the forehead, right cheek and left cheek. Onset: The dr5 symptoms/episode began/occurred last night. Patient is a 32-year-old female with history of hypothyroidism, asthma, anxiety coming in with using new skin products last night that started burning her face and causing her to swell. Patient reports that she took Benadryl last night with mild relief. Patient reports that she has had reactions like this on her face before. Patient also reports that she was dermaplaning last night as well.. Historical: - PMHx: 08:41 Anxiety; Asthma; Hypothyroidism; ph - PSHx: 08:41 Appendectomy; ph - Immunization history:: Adult Immunizations unknown. - Infectious Disease History:: Denies. - Social history:: Smoking status: unknown. ROS: 08:48 Constitutional: as per hpi dr5 Exam: 08:48 Constitutional: This is a well developed, well nourished patient who is awake, alert, dr5 and in no acute distress. Head/Face: Normocephalic, atraumatic. Redness and swelling noted to forehead and bilateral cheeks. ENT: Nares patent. No nasal discharge, no septal abnormalities noted. Tympanic membranes are normal and external auditory canals are clear. Oropharynx with no redness, swelling, or masses, exudates, or evidence of obstruction, uvula midline. Mucous membranes moist. Airway intact. Speaking full sentences. No obstruction noted. Neck: Trachea midline, no thyromegaly or masses palpated, and no cervical lymphadenopathy. Supple, full range of motion without nuchal rigidity, or vertebral point tenderness. No Meningismus. Chest/axilla: Normal chest wall appearance and motion. Nontender with no deformity. No lesions are appreciated. Cardiovascular: Regular rate and rhythm with a normal S1 and S2. Normal PMI, no JVD. No pulse deficits. Respiratory: Lungs have equal breath sounds bilaterally, clear to auscultation. No rales, rhonchi or wheezes noted. No increased work of breathing, no retractions or nasal flaring. Abdomen/GI: Soft, non-tender, non-distended Back: No spinal tenderness. No costovertebral tenderness. Full range of motion. Skin: Warm, dry with normal turgor. Normal color with no rashes, no lesions, and no evidence of cellulitis. MS/ Extremity: Pulses equal, no cyanosis. Neurovascular intact. Full, normal range of motion. Neuro: Awake and alert, GCS 15, oriented to person, place, time, and situation. Cranial nerves II-XII grossly intact. Motor strength 5/5 in all extremities. Sensory grossly intact. Cerebellar exam normal. Normal gait. Vital Signs: 08:37 BP 133 / 76; Pulse 98; Resp 18; Pulse Ox 97% on R/A; Pain 6/10; ph 09:34 BP 119 / 71; Pulse 86; Resp 18; Pulse Ox 100% ; Pain 2/10; ph 08:37 Pain Scale: Adult ph 09:34 Pain Scale: Adult ph MDM: 08:25 Medical Screening Exam initiated dr5 09:31 Differential diagnosis: anaphylaxis, angioedema, Epiglottis Allergic reaction, contact dr5 dermatitis. Data reviewed: vital signs, nurses notes. Consideration of Admission/Observation Escalation of care including admission/observation considered. Escalation considered if patient found to have angioedema or tongue swelling. I considered the following discharge prescriptions or medication management in the emergency department I discussed and recommended Over The Counter medications, Medications were administered in the Emergency Department. See MAR. Historians other than the Patient: Spouse/Significant Other: Significant other at bedside. Care significantly affected by the following chronic conditions: Anxiety, asthma, hypothyroidism. Care significantly affected by the following Social Determinants of Health: Poor access to healthcare and/or lack of insurance, Poor access to transportation, Problems related to employment. Counseling: I had a detailed discussion with the patient and/or guardian regarding the historical points, exam findings, and any diagnostic results supporting the discharge/admit diagnosis, the presence of at least one elevated blood pressure reading (>120/80) during this emergency department visit, the need for outpatient follow up, for definitive care, an allergy/logging specialist, a bricklayer, a family practitioner, to return to the emergency department if symptoms worsen or persist or if there are any questions or concerns that arise at home. Medication response: Morphine, Pepcid, dexamethasone, Benadryl. Response to treatment: the patient's symptoms have markedly improved after treatment. Special discussion: I have referred the patient to see his PCP for further evaluation of high blood pressure. I discussed with the patient/guardian in detail that at this point there is no indication for admission to the hospital. It is understood, however, that if the symptoms persist or worsen the patient needs to return immediately for re-evaluation. Based on the history and exam findings, there is no indication for further emergent testing or inpatient evaluation. I discussed with the patient/guardian the need to see the ice skating coach for further evaluation of the symptoms. I discussed with the patient/guardian the need to see the bricklayer for further evaluation of the symptoms. ED course: Patient which he is feeling better. Will prescribe patient Keflex for developing infection of her face due to scratching. Patient's only concern is having pain medication. Will give short course of tramadol. Recommend patient follow-up with primary care doctor. Will also give steroid Dosepak to help with swelling. All questions answered. Strict ER precautions given. 09:36 ED course: Patient is requesting tacrolimus for her eczema prior to discharge. Will dr5 give her tacrolimus 0.1% ointment and recommended patient follow-up with bricklayer.. 06/18 08:43 Order name: IV Start; Complete Time: 08:53 dr5 Administered Medications: 09:18 Drug: Dexamethasone IVP 10 mg IVP once; (not to exceed 40 mg) Route: IVP; Site: right ph antecubital; 09:48 Follow up: Response: No adverse reaction; Pain is decreased ph 09:18 Drug: Famotidine IVP 20 mg IVP once; dilute with 10 mL 0.9% NaCl; give over 2 minutes ph Route: IVP; Site: right antecubital; 09:47 Follow up: Response: No adverse reaction; Pain is decreased; RASS: Alert and Calm (0) ph 09:18 Drug: morphine IVP or IV 4 mg IVP once over 4 mins Route: IVP; Infused Over: 4 mins; ph Site: right antecubital; 09:47 Follow up: Response: No adverse reaction; Pain is decreased; RASS: Alert and Calm (0) ph 09:18 Drug: Ondansetron IVP 4 mg IVP once; over 2 minutes Route: IVP; Site: right antecubital;ph 09:47 Follow up: Response: No adverse reaction ph 09:19 Drug: Ketorolac IVP 15 mg IVP once Route: IVP; Site: right antecubital; ph 09:48 Follow up: Response: No adverse reaction; Pain is decreased ph 09:19 Drug: diphenhydrAMINE IVP 25 mg IVP once Route: IVP; Site: right antecubital; ph 09:48 Follow up: Response: No adverse reaction; Pain is decreased ph Disposition: 10:35 Co-signature as Attending Physician, Triston Osborn MD I reviewed the patient's care rn provided by the Advanced Practice Provider and agree with the diagnosis and treatment plan. Disposition Summary: 06/18/25 09:24 Discharge Ordered Notes: Location: Home dr5 Condition: Stable dr5 Diagnosis - Rash and other nonspecific skin eruption dr5 Followup: dr5 - With: Emergency Department - When: As needed - Reason: Worsening of condition Followup: dr5 - With: Private Physician - When: 1 - 2 days - Reason: Recheck today's complaints, Continuance of care, Re-evaluation by your physician Discharge Instructions: - Discharge Summary Sheet dr5 - Allergies, Adult dr5 Forms: - Medication Reconciliation Form dr5 - Antibiotic Education dr5 - Patient Portal Instructions dr5 - Leadership Thank You Letter dr5 Prescriptions: - tacrolimus 0.1 % Topical ointment - apply 1 application TOPICAL route 2 times per day As needed; 1 application; dr5 Refills: 0, Product Selection Permitted - Cephalexin 500 mg Oral capsule - take 1 capsule ORAL route every 12 hours for 7 days; 14 capsule; Refills: 0, dr5 Product Selection Permitted - Tramadol 50 mg Oral Tablet - take 1 tablet ORAL route every 8 hours as needed; 12 tablet; Refills: 0, dr5 Product Selection Permitted - Medrol ([place]) 4 mg Oral Tablets, Dose Pack - take 1 tablet ORAL route as directed - follow package instructions; 1 packet; dr5 Refills: 0, Product Selection Permitted - Pepcid 20 mg Oral Tablet - take 1 tablet ORAL route once daily for 10 days; 10 tablet; Refills: 0, Product dr5 Selection Permitted Signatures: Osborn, Triston, MD MD rn Gonzalez, Barbara, RN RN ph Earl, Vito, VIBRATORY PILE DRIVER-C VIBRATORY PILE DRIVER-Cdr5
[2025-06-18 10:22] VITALS: BP 119/71; O2SAT 100
== END 2025-06-18 09:53 | disposition home or self-care (01) ==
LOC: ER 08:20
DX: R21 Rash and other nonspecific skin eruption (principal)
CPT/HCPCS: 96375; 96374; 99284; J1200; J1100; J2405